=== PATIENT | female | born 1995 | race African-American/Black ===

== ENCOUNTER 2016-09-30 09:29 | Inpatient (IN) | payer MEDICAID ==
[~2016-09-30] VITALS: Ht 149.9 cm; Wt 109.8 kg
[2016-09-30 09:29] VITALS: Ht 149.9 cm; Wt 109.8 kg
[2016-09-30] MEDS ORDERED: FAMOTIDINE 20 MG INJ IV PRN (10:25)
[2016-09-30] MEDS ORDERED: AMPICILLIN 2,000 MG in SODIUM CHLORIDE 0.9% 100 ML IV ONE (10:25)
[2016-09-30] MEDS ORDERED: MAGNESIUM 50 GM/500 ML (LD/OB) 500 ML IV SCH (10:25)
[2016-09-30] MEDS ORDERED: MAGNESIUM 4GM/50ML (LD/OB) 50 ML IV ONE (10:25)
[2016-09-30] MEDS ORDERED: METOCLOPRAMIDE 10 MG/2 ML VIAL IV PUSH PRN (10:25)
[2016-09-30] MEDS ORDERED: LIDOCAINE 1% BUFFERED 1 ML SYR INTRADERM PRN (10:25)
[2016-09-30] MEDS ORDERED: PHARMACY TO DOSE GENTAMICIN IV PRN (10:25)
[2016-09-30] MEDS ORDERED: BETAMETHASONE SUSP 6 MG/ML VIAL 5 ML IM ONE ×2 (10:25→23:40)
[2016-09-30] MEDS ORDERED: CALCIUM GLUC 1000 MG/10 ML IV PUSH PRN (10:25)
[2016-09-30] MEDS ORDERED: MAGNESIUM 50 GM/500 ML (LD/OB) 500 ML IV ONE (10:40)
[2016-09-30] MEDS ORDERED: GENTAMICIN IV PRN (10:45)
[2016-09-30] MEDS ORDERED: SODIUM CHLORIDE 0.9% IV PRN (10:45)
[2016-09-30] MEDS: LACT RINGERS 1,000 ML IV SCH ×2 (11:32→20:00)
[2016-09-30] MEDS: AMPICILLIN 1,000 MG in SODIUM CHLORIDE 0.9% 50 ML IV SCH ×3 (16:07→23:35)
[2016-09-30] MEDS ORDERED: FAMOTIDINE 20 MG TAB PO PRN (21:50)
[2016-09-30] MEDS ORDERED: ONDANSETRON 4 MG VIAL IV PRN (21:50)
[2016-10-01] MEDS: AMPICILLIN 1,000 MG in SODIUM CHLORIDE 0.9% 50 ML IV SCH ×3 (04:00→12:20)
[2016-10-01] MEDS: LACT RINGERS 1,000 ML IV SCH (05:08)
== END 2016-10-01 14:08 | disposition home or self-care (01) | DRG 778 ==
LOC: LDOP 09:29 → LD 10:26
PROVIDERS: ADMIT Obstetrics & Gynecology; ATTEND Obstetrics & Gynecology
DX: O60.03 Preterm labor without delivery, third trimester (principal); Z3A.30 30 weeks gestation of pregnancy
CPT/HCPCS: 59025; 80053; 80307; 81002; 81003; 84112; 85025

== ENCOUNTER 2016-10-05 23:37 | Inpatient (IN) | payer MEDICAID ==
[~2016-10-05] VITALS: Ht 149.9 cm; Wt 109.8 kg
[2016-10-06] VITALS (9 sets, daily range): BP systolic 89–127; RESP 16–20; TEMP 97.6–98.2; Ht 149.9 cm; Wt 109.8 kg
[2016-10-06] MEDS ORDERED: FAMOTIDINE 20 MG INJ IV PRN (00:05)
[2016-10-06] MEDS ORDERED: CEFAZOLIN (LD/OB) 100 ML IV PRN (00:05)
[2016-10-06] MEDS ORDERED: ACETAMINOPHEN 325 MG TAB PO PRN (00:05)
[2016-10-06] MEDS ORDERED: PROMETHAZINE 25 MG/ML VIAL IV PRN (00:05)
[2016-10-06] MEDS ORDERED: TERBUTALINE 1 MG/ML VIAL SUBQ PRN (00:05)
[2016-10-06] MEDS ORDERED: METOCLOPRAMIDE 10 MG/2 ML VIAL IV PUSH PRN (00:05)
[2016-10-06] MEDS ORDERED: ONDANSETRON 4 MG VIAL IV PRN (00:05)
[2016-10-06] MEDS ORDERED: LIDOCAINE 1% BUFFERED 1 ML SYR INTRADERM PRN (00:05)
[2016-10-06] MEDS ORDERED: LIDOCAINE 1% 30 ML PF INFILTRATE ONE (00:05)
[2016-10-06] MEDS ORDERED: AMPICILLIN 2,000 MG in SODIUM CHLORIDE 0.9% 100 ML IV ONE (00:05)
[2016-10-06] MEDS ORDERED: FAMOTIDINE 20 MG TAB PO PRN (00:05)
[2016-10-06] MEDS ORDERED: ALU/MAG/SIM 30 ML UDC PO PRN (00:05)
[2016-10-06] MEDS: LACT RINGERS 1,000 ML IV SCH ×4 (00:57→15:40)
[2016-10-06] MEDS ORDERED: LIDOCAINE 1% 30 ML PF ONE (01:11)
[2016-10-06] MEDS: AMPICILLIN 1,000 MG in SODIUM CHLORIDE 0.9% 50 ML IV SCH ×3 (04:40→15:42)
[2016-10-06] MEDS: OXYTOCIN 15 UNITS/250 ML NS 250 ML IV SCH ×2 (09:34→17:27)
[2016-10-06] MEDS ORDERED: OXYTOCIN 15 UNITS/250 ML NS 250 ML IV SCH ×2 (09:45→17:35)
[2016-10-06] MEDS ORDERED: ROPIV/FENT 0.2%-2MCG/ML 100 ML EPIDURAL ONE (14:56)
[2016-10-06] MEDS ORDERED: FENTANYL 100 MCG/2 ML AMP ONE (14:57)
[2016-10-06] MEDS ORDERED: ROPIV/FENT 0.2%-2MCG/ML 100 ML EPIDURAL SCH (15:35)
[2016-10-06] MEDS ORDERED: LACT RINGERS 500 ML IV PRN (15:35)
[2016-10-06] MEDS ORDERED: SODIUM CHLORIDE 0.9% 500 ML IV PRN (15:35)
[2016-10-06] MEDS ORDERED: FENTANYL 100 MCG/2 ML AMP EPIDURAL ONE (15:35)
[2016-10-06] MEDS ORDERED: LACT RINGERS 500 ML IV ONE (15:35)
[2016-10-06] MEDS ORDERED: OXYCODONE/APAP 5/325 TAB PO PRN (17:35)
[2016-10-06] MEDS ORDERED: MEASLES,MUMPS,RUBELLA VAC SUBQ.VACC ONE (17:35)
[2016-10-06] MEDS ORDERED: DERMOPLAST SPRAY TOPICAL PRN (17:35)
[2016-10-06] MEDS ORDERED: Ibuprofen 600 MG TAB PO PRN (17:35)
[2016-10-06] MEDS ORDERED: ZOLPIDEM 5 MG TAB PO PRN (17:35)
[2016-10-06] MEDS ORDERED: ASTRINGENT MED PADS 40'S TOPICAL PRN (17:35)
[2016-10-06] MEDS ORDERED: MAG HYDROX 30 ML UDC PO PRN (17:35)
[2016-10-06] MEDS ORDERED: TDaP 0.5 ML VIAL IM.VACC ONE (17:35)
[2016-10-06] MEDS ORDERED: **ONLY ANESTEHSIA MAY ORDER OPIATES WHILE ON EPIDURAL XX SCH (20:00)
[2016-10-07] VITALS (9 sets, daily range): BP systolic 102–139; RESP 16–20; TEMP 97.4–98.1
[2016-10-07] MEDS ORDERED: DOCUSATE SOD 100 MG CAP PO SCH (09:00)
[2016-10-07] MEDS ORDERED: TDaP 0.5 ML VIAL IM.VACC ONE (15:24)
== END 2016-10-07 18:17 | disposition home or self-care (01) | DRG 775 ==
LOC: LDOP 23:37 → LD 23:48 → OB 10-06 19:50
PROVIDERS: ADMIT Obstetrics & Gynecology; ATTEND Obstetrics & Gynecology
PROC: 10E0XZZ Delivery of Products of Conception, External Approach (ICD-10-PCS; principal; 2016-10-06)
PROC: 0HQ9XZZ Repair Perineum Skin, External Approach (ICD-10-PCS; 2016-10-06)
DX: O60.14X0 Preterm labor third trimester with preterm delivery third trimester, not applicable or unspecified (principal); O70.0 First degree perineal laceration during delivery; Z3A.30 30 weeks gestation of pregnancy; Z37.0 Single live birth
CPT/HCPCS: 80053; 85025; 88307; 96372